=== PATIENT | female | born 1975 | race Caucasian/White ===

== ENCOUNTER → 2018-09-18 | Outpatient (CLI) | payer OTHER ==
--- NOTE | 2018-09-18 12:35 | Diagnostic Imaging Report ---
EXAM: SP LUMBAR, COMPLETE MIN 4VW DATE: 09/18/2018 10:39 AM INDICATION: Low back pain ^[id number] ^1145 ^LBP COMPARISON: None FINDINGS: 5 views of the lumbar spine show 5 lumbar type vertebrae. Lumbar body heights and disc spaces are maintained. No spondylolisthesis. No pars defect. Mild facet arthrosis from L3 through S1. Soft tissues unremarkable. IMPRESSION: No acute bony abnormality. Degenerative change with facet arthrosis noted. Signed by: Dr. José Luis Sung M.D. on 09/18/2018 12:31 PM
== END ==
LOC: MAMMO 10:29
PROVIDERS: ATTEND Internal Medicine
DX: Z12.31 Encounter for screening mammogram for malignant neoplasm of breast (principal); M54.5 Low back pain
CPT/HCPCS: 72110; 77067; 81025

== ENCOUNTER → 2018-10-17 | Outpatient (CLI) | payer OTHER ==
--- NOTE | 2018-10-18 08:32 | Diagnostic Imaging Report ---
#[id number] - MGDXRT #UNILATERAL RIGHT DIGITAL DIAGNOSTIC MAMMOGRAM WITH SPOT COMPRESSION: 10/17/2018 Comparison is made to exam dated: 09/18/2018 mammogram - [facility]. The tissue of the right breast is heterogeneously dense. This may lower the sensitivity of mammography. There is a benign 5 mm oval cyst with a circumscribed margin in the right breast at 10 o'clock anterior depth. This is seen in additional views. This correlates with ultrasound findings. There also is a benign 5 mm oval cyst with a circumscribed margin in the right breast at 11 o'clock anterior depth. This is seen in additional views. This correlates with ultrasound findings. No other significant masses or calcifications are seen in the breast. IMPRESSION: BENIGN See the report for ultrasound performed the same day for additional details. There is no mammographic evidence of malignancy. A 1 year screening mammogram is recommended. The patient will be notified by letter of the results. CHELSEY SCHUMACHER M.D. ct/:10/17/2018 13:48:34 Glass Blower: Praveena HANSEN(Nayely)([place]), [facility] letter sent: Normal Exam Mammogram BI-RADS: 2 Benign
--- NOTE | 2018-10-18 08:32 | Diagnostic Imaging Report ---
#[id number] - USBRELIMRT ULTRASOUND OF THE RIGHT BREAST : 10/17/2018 Comparison is made to exams dated: 10/17/2018 mammogram and 09/18/2018 mammogram - [facility]. Real-time ultrasound was performed on the right breast. There are 2 benign 5 mm oval cysts with a smooth internal wall in the right breast at 9 and 10 o'clock middle depth. The cysts are anechoic with posterior acoustic enhancement. This correlates with mammography findings. IMPRESSION: BENIGN There is no sonographic evidence of malignancy. The 5 mm cysts in the right breast are benign. A 1 year screening mammogram is recommended. CHELSEY SCHUMACHER M.D. ct/:10/17/2018 13:51:09 Laser Engineer: GABY SINGLETARY [facility], [facility] letter sent: Normal Exam Ultrasound BI-RADS: 2 Benign
== END ==
LOC: MAMMO 09:55
PROVIDERS: ATTEND Internal Medicine
DX: N63.10 Unspecified lump in the right breast, unspecified quadrant (principal)